=== PATIENT | female | born 1985 | race Caucasian/White ===

== ENCOUNTER 2016-06-21 17:30 | Emergency (ER) | payer SELFPAY ==
[~2016-06-21] VITALS: Ht 160 cm; Wt 74.8 kg
--- OUTSIDE RECORDS SUMMARY | 2016-06-21 17:36 | XMS REPORT ---
Author Author TRIPP OCHOA Organization [employer] Address Unknown Phone Unavailable Care Team Providers Care Rail Grinder Name Role Phone TRIPP OCHOA CP Unavailable Allergies No Known Allergies Problems Problem Type Condition ICD-9 Code Onset Dates Condition Status Assessment Dental examination V72.2 Active Medications No Known Medications Procedures Procedure Coding System Code Date INTRAORL-PERIAPICAL 1 FILM 33183 CPT-4 D0220 Nov 14, 2014 INTRAORL-PERIAPICAL EA ADD FILM CPT-4 D0230 Nov 14, 2014 COMP ORAL EVALUATION - NEW/EST PT CPT-4 D0150 Nov 14, 2014 Periodontal scaling & root CPT-4 D4341 Nov 14, 2014 INTRAORL-PERIAPICAL EA ADD FILM CPT-4 D0230 Nov 14, 2014 INTRAORL-PERIAPICAL EA ADD FILM CPT-4 D0230 Nov 14, 2014 Periodontal scaling & root CPT-4 D4341 Nov 14, 2014 BITEWING - SINGLE FILM CPT-4 D0270 Nov 14, 2014 Results No Known Results Summary Purpose eClinicalWorks Submission
--- NOTE | 2016-06-21 17:57 | ED Upper Extremity ---
General Chief Complaint: Laceration Stated Complaint: L HAND FINGER LAC Source: patient Exam Limitations: no limitations History of Present Illness Time seen by provider: 17:54 Initial Comments To ER with a laceration to the ulnar side middle phalanx ring finger left hand from a butter knife just prior to arrival. Tetanus is not up-to-date. Onset: just prior to arrival Severity: mild Pain/Injury Location: left 4th finger Modifying Factors: Worse With Movement Allergies and Home Medications Allergies Coded Allergies: No Known Drug Allergies (Verified , 03/29/08) Constitutional: see HPI EENTM: see HPI Respiratory: no symptoms reported Cardiovascular: no symptoms reported Genitourinary: no symptoms reported Musculoskeletal: see HPI Skin: see HPI Psychiatric/Neurological: No Symptoms Reported Past Xwupeao-Stnzle-Pmqkug Hx Patient Social History Recent Foreign Travel: No Contact w/Someone Who Travel: No Respiratory Hx Respiratory Disorders: No Cardiovascular Hx Cardiac Disorders: No Neurological Hx Neurological Disorders: No Reproductive System Hx Reproductive Disorders: No Genitourinary Hx Genitourinary Disorders: No Gastrointestinal Hx Gastrointestinal Disorders: No Musculoskeletal Hx Musculoskeletal Disorders: No Endocrine Hx Endocrine Disorders: No HEENT HX ENT Disorders: No Psychosocial Hx Psychiatric Problems: No Blood Transfusions Hx Blood Disorders: No Physical Exam Vital Signs Capillary Refill : General Appearance: WD/WN no apparent distress HEENT: PERRL/EOMI normal ENT inspection Neck: non-tender full range of motion Respiratory: no respiratory distress no accessory muscle use Gastrointestinal: non tender soft Shoulder: normal inspection non-tender Elbow/Forearm: normal inspection, Left Wrist: Yes normal inspection, Yes non-tender Hand: Left, laceration (0.5cm lac to middle phalanx ulnar side left ring finger. Maintains ability to flex at the DIP joint and the PIP joint. ) Neurologic/Psychiatric: alert normal mood/affect oriented x 3 Skin: normal color warm/dry Laceration Repair : Wound Location: Upper Extremities Wound Length (cm): 0.5 Wound's Depth, Shape: sub Q Wound Explored: clean Irrigated w/ Saline (ccs): 30 Anesthesia: 1% Lidocaine Volume Anesthetic (ccs): 2 Suture: Ethlion Suture Size: 5-0 Number of Sutures: 3 Layer Closure?: 1 Number Deep Layer Sutures: 0 Progress Area anesthetized locally with 1 percent lidocaine with epinephrine totaling 1 mL. Wound then scrubbed with chlorhexidine/saline solution then irrigated with same. Wound then closed with 3 simple sutures size 5-0 Ethilon. Progress/Results/Core Measures Results/Orders My Orders Orders-AAMIR CONWAY APRN Lidocaine 2% Injection 20 Ml (Xylocaine (06/21/16 18:00) Dipht,Pertuss(Acell),Tet Adult (Boostrix (06/21/16 18:00) Departure Impression Impression: Primary Impression: Finger laceration Qualified Code: S61.219A - Laceration without foreign body of unspecified finger without damage to nail, initial encounter Disposition: 01 HOME, SELF-CARE Condition: Stable Departure-Patient Inst. Decision time for Depature: 17:57 Referrals: NO,LOCAL PHYSICIAN (PCP/Family) Primary Care Physician Patient Instructions: Laceration Repair With Stitches (DC) Add. Discharge Instructions: 1. Return to the emergency room to have the stitches removed in 7-10 days at your convenience 2. Return to ER for any concerns 3. You may wash her hands allowing water to run over them gently starting tomorrow but do not soak them in water such as a dish sink, hot tub, swimming pool or bathtub until the stitches have been removed All discharge instructions reviewed with patient and/or family. Voiced understanding. Scripts No Active Prescriptions or Reported Meds AAMIR CONWAY APRN Jun 21, 2016 17:57
[2016-06-21] MEDS ORDERED: TETANUS,DIPTH,PERTUSS P/F (BOOSTRIX) 0.5 ML VIAL IM ONE (18:00)
[2016-06-21] MEDS ORDERED: LIDOCAINE 2% 20 ML (XYLOCAINE) VIAL INJ ONE (18:00)
[2016-06-21 18:14] VITALS: BP 130/74
== END 2016-06-21 18:14 | disposition home or self-care (01) ==
LOC: EDUNIT# 17:30 → ER 17:32
DX: S61.215A Laceration without foreign body of left ring finger without damage to nail, initial encounter (principal); Z23 Encounter for immunization; W26.0XXA Contact with knife, initial encounter; Y92.009 Unspecified place in unspecified non-institutional (private) residence as the place of occurrence of the external cause; Y99.8 Other external cause status
CPT/HCPCS: 12001; 90471; 90715

== ENCOUNTER 2016-06-29 13:03 | Emergency (ER) | payer SELFPAY ==
[~2016-06-29] VITALS: Ht 160 cm; Wt 76.2 kg
== END 2016-06-29 13:30 | disposition home or self-care (01) ==
LOC: EDUNIT# 13:03 → ER 13:05
DX: S61.215D Laceration without foreign body of left ring finger without damage to nail, subsequent encounter (principal)

== ENCOUNTER 2016-10-11 14:51 | Emergency (ER) | payer SELFPAY ==
[~2016-10-11] VITALS: Ht 160 cm; Wt 76.2 kg
[2016-10-11] MEDS ORDERED: LEVO40CA PO (15:18)
--- NOTE | 2016-10-11 15:43 | ED Abdominal Pain ---
General Chief Complaint: Abdominal/GI Problems Stated Complaint: NAUSEA/L SIDE PAIN Nursing Triage Note: pt reports l sided abdominal pain that started this am. pt reports vomiting. Sepsis Screen: No Definite Risk Source of Information: Patient Exam Limitations: No Limitations History of Present Illness Time Seen By Provider: 15:20 Initial Comments The patient is a 31-year-old white female who presents with complaints of severe left sided abdominal pain which began this morning. She denies nausea or vomiting. She states she has had a bowel movement today. She denies burning or frequency of urination. There has been no injury. Timing/Duration: 4-6 Hours Severity/Quality: Moderate Location: LUQ, LLQ Radiation: Flank Allergies and Home Medications Allergies Coded Allergies: No Known Drug Allergies (Verified , 03/29/08) Home Medications Levomilnacipran Hydrochloride 40 Mg Cap.sa.24h, 40 MG PO, (Reported) Review of Systems Constitutional: see HPI EENTM: No Symptoms Reported Respiratory: No Symptoms Reported Cardiovascular: No Symptoms Reported Gastrointestinal: See HPI Genitourinary: No Symptoms Reported Musculoskeletal: back pain Skin: no symptoms reported Psychiatric/Neurological: No Symptoms Reported Endocrine: No Symptoms Reported Past Qcqelsd-Bdokww-Ywjksr Hx Patient Social History Alcohol Use: Occasionally Uses Recreational Drug Use: No Smoking Status: Current Everyday Smoker Type Used: Cigarettes 2nd Hand Smoke Exposure: No Recent Foreign Travel: No Contact w/Someone Who Travel: No Recent Infectious Disease Expo: No Recent Hopitalizations: No Immunizations Up To Date Tetanus Booster (TDap): Unknown Surgeries HX Surgeries: No Surgeries: Tubal Ligation Respiratory Hx Respiratory Disorders: No Cardiovascular Hx Cardiac Disorders: No Neurological Hx Neurological Disorders: No Reproductive System Hx Reproductive Disorders: No LAMINATING MACHINE OPERATOR History: Tubal Ligation Genitourinary Hx Genitourinary Disorders: No Gastrointestinal Hx Gastrointestinal Disorders: No Musculoskeletal Hx Musculoskeletal Disorders: No Endocrine Hx Endocrine Disorders: No HEENT HX ENT Disorders: No Psychosocial Hx Psychiatric Problems: No Behavioral Health Disorders: PTSD Blood Transfusions Hx Blood Disorders: No Physical Exam Vital Signs VS - Last 72 Hours, by Label 10/11/16 15:12 Temp 97.6 Pulse 62 Resp 16 B/P (MAP) 121/89 Pulse Ox 98 Capillary Refill : Less Than 3 Seconds General Appearance: moderate distress HEENT: normal ENT inspection Neck: full range of motion Respiratory: chest non-tender, lungs clear, normal breath sounds, no respiratory distress, no accessory muscle use Cardiovascular: normal peripheral pulses, regular rate, rhythm, no edema, no gallop, no JVD, no murmur Gastrointestinal: normal bowel sounds, non tender, soft, no organomegaly, no pulsatile mass Extremities: normal range of motion, non-tender, normal inspection, no pedal edema, no calf tenderness, normal capillary refill, pelvis stable Back: normal inspection Neurologic/Psychiatric: pattern maker II-XII nml as tested, no motor/sensory deficits, alert, normal mood/affect, oriented x 3 Skin: normal color, warm/dry Lymphatic: no adenopathy Laceration Repair : Suture Size: 5-0 Progress/Results/Core Measures Results/Orders Lab Results Laboratory Tests Test 10/11/16 15:35 Range/Units White Blood Count 14.2 H 4.3-11.0 10^3/uL Red Blood Count 4.61 4.35-5.85 10^6/uL Hemoglobin 13.5 11.5-16.0 G/DL Hematocrit 41 35-52 % Mean Corpuscular Volume 88 80-99 FL Mean Corpuscular Hemoglobin 29 25-34 PG Mean Corpuscular Hemoglobin Concent 33 32-36 G/DL Red Cell Distribution Width 13.4 10.0-14.5 % Platelet Count 253 130-400 10^3/uL Mean Platelet Volume 10.5 H 7.4-10.4 FL Neutrophils (%) (Auto) 84 H 42-75 % Lymphocytes (%) (Auto) 8 L 12-44 % Monocytes (%) (Auto) 6 0-12 % Eosinophils (%) (Auto) 2 0-10 % Basophils (%) (Auto) 0 0-10 % Neutrophils # (Auto) 12.0 H 1.8-7.8 X 10^3 Lymphocytes # (Auto) 1.1 1.0-4.0 X 10^3 Monocytes # (Auto) 0.8 0.0-1.0 X 10^3 Eosinophils # (Auto) 0.2 0.0-0.3 10^3/uL Basophils # (Auto) 0.0 0.0-0.1 10^3/uL Neutrophils % (Manual) 74 % Lymphocytes % (Manual) 9 % Monocytes % (Manual) 10 % Eosinophils % (Manual) 2 % Basophils % (Manual) 0 % Band Neutrophils 5 % Blood Morphology Comment NORMAL Urine Color YELLOW Urine Clarity CLEAR Urine pH 5 5-9 Urine Specific [place] 1.025 H 1.016-1.022 Urine Protein 1+ H NEGATIVE Urine Glucose (UA) NEGATIVE NEGATIVE Urine Ketones NEGATIVE NEGATIVE Urine Nitrite NEGATIVE NEGATIVE Urine Bilirubin NEGATIVE NEGATIVE Urine Urobilinogen NORMAL NORMAL MG/DL Urine Leukocyte Esterase 1+ H NEGATIVE Urine RBC (Auto) 2+ H NEGATIVE Urine RBC 5-10 H /HPF Urine WBC 2-5 /HPF Urine Squamous Epithelial Cells 25-50 H /HPF Urine Crystals NONE /LPF Urine Bacteria FEW H /HPF Urine Casts NONE /LPF Urine Mucus NEGATIVE /LPF Urine Culture Indicated NO Sodium Level 141 135-145 MMOL/L Potassium Level 4.4 3.6-5.0 MMOL/L Chloride Level 107 98-107 MMOL/L Carbon Dioxide Level 25 21-32 MMOL/L Anion Gap 9 5-14 MMOL/L Blood Urea Nitrogen 14 7-18 MG/DL Creatinine 0.98 0.60-1.30 MG/DL Estimat Glomerular Filtration Rate > 60 BUN/Creatinine Ratio 14 Glucose Level 123 H 70-105 MG/DL Calcium Level 9.3 8.5-10.1 MG/DL Total Bilirubin 0.5 0.1-1.0 MG/DL Aspartate Amino Transf (AST/SGOT) 19 5-34 U/L Alanine Aminotransferase (ALT/SGPT) 17 0-55 U/L Alkaline Phosphatase 70 40-136 U/L Total Protein 6.9 6.4-8.2 GM/DL Albumin 4.1 3.2-4.5 GM/DL My Orders Orders - GARRY DELA CRUZ MD Cbc With Automated Diff (10/11/16 15:20) Comprehensive Metabolic Panel (10/11/16 15:20) Ua Culture If Indicated (10/11/16 15:20) Manual Differential (10/11/16 15:35) Ct Abdomen/Pelvis W (10/11/16 16:13) Iohexol Injection (Omnipaque 350 Mg/Ml 1 (10/11/16 16:30) Ns (Ivpb) (Sodium Chloride 0.9% Ivpb Bag (10/11/16 16:30) Fentanyl Injection (Sublimaze Injection (10/11/16 17:00) Abdomen/Kub 1view (10/11/16 17:10) Ketorolac Injection (Toradol Injection) (10/11/16 17:30) Ceftriaxone Injection (Rocephin Injectio (10/11/16 17:45) Ns Iv 1000 Ml (Sodium Chloride 0.9%) (10/11/16 18:00) Rx-Hydrocodone/Apap 5-325 Mg (Rx-Vicodin (10/11/16 18:00) Medications Given in ED Current Medications Medications Dose Ordered Sig/Chandrakant Route Start Time Stop Time Status Last Admin Dose Admin Fentanyl Citrate 50 mcg ONCE ONCE IVP 10/11/16 17:00 10/11/16 17:01 DC 10/11/16 17:07 50 MCG Iohexol 100 ml ONCE ONCE IV 10/11/16 16:30 10/11/16 16:31 DC 10/11/16 16:33 100 ML Ketorolac Tromethamine 30 mg ONCE ONCE IVP 10/11/16 17:30 10/11/16 17:31 DC 10/11/16 17:34 30 MG Sodium Chloride 100 ml ONCE ONCE IV 10/11/16 16:30 10/11/16 16:31 DC 10/11/16 16:33 80 ML Vital Signs/I&O Vital Sign - Last 12Hours 10/11/16 15:12 Temp 97.6 Pulse 62 Resp 16 B/P (MAP) 121/89 Pulse Ox 98 Blood Pressure Mean: 100 Departure Communication Progress Notes By my review of the CT scan there is a stone in the left ureter and subsequent radiology report confirms this at [address] Baron at 1720. He suggested Toradol, a dose of Rocephin and he would see her at the office in the morning. Impression Impression: Primary Impression: left ureteral stone Disposition: HOME, SELF-CARE Condition: Stable/Unchanged Departure-Patient Inst. Decision time for Depature: 17:47 Referrals: NO,LOCAL PHYSICIAN (PCP) Primary Care Physician Patient Instructions: No Instuctions Given Add. Discharge Instructions: All discharge instructions reviewed with patient and/or family. Voiced understanding. Plenty of liquids Strain all urine Go to Dr. Baron's office in the morning at 1030 Pain medicine as necessary GARRY DELA CRUZ MD Oct 11, 2016 15:42
[2016-10-11 15:44] LABS: BASOPHILS % (AUTO) 0 % (0-10); BILIRUBIN,URINE NEGATIVE (NEGATIVE); EOSINOPHILS # (AUTO) 0.2 10^3/uL (0.0-0.3); EOSINOPHILS % (AUTO) 2 % (0-10); KETONES,URINE NEGATIVE (NEGATIVE); LEUKOCYTE ESTERASE ,URINE 1+ (NEGATIVE); LYMPHOCYTES # (AUTO) 1.1 X 10^3 (1.0-4.0); LYMPHOCYTES % (AUTO) 8 % (12-44); MEAN CORPUSCULAR HEMOGLOBIN 29 PG (25-34); MEAN CORPUSCULAR HGB CONC 33 G/DL (32-36); MEAN CORPUSCULAR VOLUME 88 FL (80-99); MEAN PLATELET VOLUME 10.5 FL (7.4-10.4); MONOCYTES # (AUTO) 0.8 X 10^3 (0.0-1.0); MONOCYTES % (AUTO) 6 % (0-12); NEUTROPHILS % (AUTO) 84 % (42-75); NITRITE,URINE NEGATIVE (NEGATIVE); PH,URINE 5 (5-9); PLATELET COUNT 253 10^3/uL (130-400); PROTEIN,URINE 1+ (NEGATIVE); RED BLOOD COUNT 4.61 10^6/uL (4.35-5.85); RED CELL DISTRIBUTION WIDTH 13.4 % (10.0-14.5); UROBILINOGEN,URINE NORMAL (NORMAL); WHITE BLOOD COUNT 14.2 10^3/uL (4.3-11.0)
[2016-10-11 15:53] LABS: SQUAMOUS EPITHELIAL CELL,UR 25-50 /HPF
[2016-10-11 16:03] LABS: ALANINE AMINOTRANSFERASE 17 U/L (0-55); ALBUMIN 4.1 GM/DL (3.2-4.5); ANION GAP 9 MMOL/L (5-14); ASPARTATE AMINO TRANSFERASE 19 U/L (5-34); BILIRUBIN,TOTAL 0.5 MG/DL (0.1-1.0); BLOOD UREA NITROGEN 14 MG/DL (7-18); BUN/CREATININE RATIO 14; CALCIUM 9.3 MG/DL (8.5-10.1); CARBON DIOXIDE 25 MMOL/L (21-32); CHLORIDE 107 MMOL/L (98-107); CREATININE SERUM 0.98 MG/DL (0.60-1.30); GFR ESTIMATED > 60; GLUCOSE 123 MG/DL (70-105); POTASSIUM 4.4 MMOL/L (3.6-5.0); SODIUM 141 MMOL/L (135-145); TOTAL PROTEIN 6.9 GM/DL (6.4-8.2)
[2016-10-11 16:07] LABS: BAND NEUTROPHILS 5 %; BASOPHILS % (MANUAL) 0 %; EOSINOPHILS % (MANUAL) 2 %; LYMPHOCYTES % (MANUAL) 9 %; NEUTROPHILS % (MANUAL) 74 %
[2016-10-11] MEDS ORDERED: IOHEXOL 350 MG/ML 100 ML (OMNIPAQUE 350) VIAL IV ONE (16:30)
[2016-10-11] MEDS ORDERED: NS 100 ML (IVPB) BAG IV ONE (16:30)
--- NOTE | 2016-10-11 16:49 | Diagnostic Imaging Report ---
PROCEDURE: CT abdomen and pelvis with contrast. TECHNIQUE: Multiple contiguous axial images were obtained through the abdomen and pelvis after administration of intravenous contrast. INDICATION: Left flank pain. FINDINGS: The lung bases are clear. Liver appears normal. Gallbladder and bile ducts are normal. The pancreas and spleen are normal. Adrenal glands are normal. There is mild hydronephrosis of the left kidney. Left ureter is dilated. There is a calculus in the mid left ureter measuring approximately 5 mm. No other calculi are demonstrated. Bladder is nondistended. Uterus appears normal. There are no pelvic masses. Bowel gas pattern appears normal with diverticulosis demonstrated. No evidence of diverticulitis. Appendix is normal. The aorta and abdominal vessels enhance in a normal fashion. IMPRESSION: 1. Hydronephrosis of the left kidney with 5 mm calculus in the mid left ureter. 2. Bowel gas pattern is normal with diverticulosis and no evidence of diverticulitis. The appendix is normal. Dictated by: Dictated on workstation # [id number]
[2016-10-11] MEDS ORDERED: fentaNYL INJECTION 100 MCG/2 ML AMP IVP ONE (17:00)
[2016-10-11] MEDS ORDERED: KETOROLAC 30 MG/ML VIAL IVP ONE (17:30)
--- NOTE | 2016-10-11 17:37 | Diagnostic Imaging Report ---
EXAMINATION: Abdomen. INDICATION: Flank pain. TECHNIQUE: Two supine views were obtained. FINDINGS: Both collecting systems and the bladder are opacified by the intravenous contrast used for the CT abdomen/pelvis exam performed prior to this study. As noted on the previous CT exam, there is partial obstruction of the left collecting system. The proximal left ureter and left renal pelvis are dilated. The obstructive calculus seen on the CT exam is difficult to visualize. The distal left ureter is of normal caliber. The right collecting system is unremarkable. There is no acute abnormality of the abdomen or pelvis noted, otherwise. IMPRESSION: There is partial obstruction of the left collecting system due to a 5 mm calculus at the level of L3-L4. There is no acute abnormality identified, otherwise. Dictated by: Dictated on workstation # [id number]
[2016-10-11] MEDS ORDERED: cefTRIAXone INJECTION 1,000 MG in NS (IVPB) 50 ML IV ONE (17:45)
[2016-10-11] MEDS ORDERED: NS IV 1000 ML 1,000 ML IV SCH (18:00)
[2016-10-11] MEDS ORDERED: RX-HYDROCODONE/APAP 5/325 MG #4 TAB PK PO PRN (18:00)
[2016-10-11] MEDS ORDERED: RX-OXYCODONE/APAP 5-325 MG #4 TAB PK PO PRN (18:15)
[2016-10-11 18:49] VITALS: BP 120/80
--- OUTSIDE RECORDS SUMMARY | 2016-10-14 13:39 | XMS REPORT ---
Author Author ARUN DHALIWAL [facility] [place] e[employer]Works Address Unknown Phone Unavailable Care Team Providers Care Athletics Teacher Name Role Phone ARUN DHALIWAL CP Unavailable Allergies No Known Allergies Problems No Known Problems Medications No Known Medications Results No Known Results Summary Purpose eClinicalWorks Submission
--- OUTSIDE RECORDS SUMMARY | 2016-10-14 13:39 | XMS REPORT ---
Author Author TRIPP COHOA Organization eClinical[employer] Address Unknown Phone Unavailable Care Team Providers Care Fitter Mechanic Name Role Phone TRIPP OCHOA CP Unavailable Allergies No Known Allergies Problems Problem Type Condition ICD-9 Code Onset Dates Condition Status Assessment Dental examination V72.2 Active Medications No Known Medications Procedures Procedure Coding System Code Date INTRAORL-PERIAPICAL 1 FILM 06915 CPT-4 D0220 Nov 14, 2014 INTRAORL-PERIAPICAL EA [...]
== END 2016-10-11 18:49 | disposition home or self-care (01) ==
LOC: EDUNIT# 14:51 → ER 14:53
DX: N20.1 Calculus of ureter (principal); F43.10 Post-traumatic stress disorder, unspecified; F17.210 Nicotine dependence, cigarettes, uncomplicated; Z98.51 Tubal ligation status
CPT/HCPCS: 36415; 74000; 74177; 80053; 81000; 85007; 85027; 96365; 96375

== ENCOUNTER → 2016-10-19 | Outpatient (CLI) | payer OTHER ==
[~2016-10-19] MED LIST: BUSP10TA95 PO; HYDR-3876 PO; LEVO40CA PO; NITR-65 PO; TAMS0.4C98 PO
--- NOTE | 2016-10-19 15:37 | Diagnostic Imaging Report ---
INDICATION: Left sided abdominal pain. FINDINGS: There is a 5 mm calculus projecting over the left renal pelvis near the ureteropelvic junction. There are surgical lon in the pelvis which may be from a prior tubal ligation. The bowel gas pattern is normal. IMPRESSION: A 5 mm calculus is present near the left ureteropelvic junction. Dictated by: Dictated on workstation # [id number]
== END ==
LOC: RAD 13:48
PROVIDERS: ATTEND Urology
DX: N20.1 Calculus of ureter (principal)
CPT/HCPCS: 74000

== ENCOUNTER → 2016-10-19 | Outpatient (CLI) | payer OTHER | LOC: PREOP 05:29 | PROVIDERS: ATTEND Urology | DX: Z01.818 Encounter for other preprocedural examination; N20.1 Calculus of ureter ==

== ENCOUNTER 2016-10-21 09:00 | Day surgery (SDC) | payer OTHER ==
[~2016-10-21] VITALS: Ht 160 cm; Wt 77.2 kg
[~2016-10-21 09:00] MED LIST changes: -BUSP10TA95 PO; -HYDR-3876 PO; -NITR-65 PO; -TAMS0.4C98 PO
[2016-10-21 09:20] VITALS: BP 116/98
--- NOTE | 2016-10-21 09:31 | Progress Note-Pre Operative ---
Pre-Operative Progress Note H&P Reviewed The H&P was reviewed, patient examined and no changes noted. Date Seen by Provider: Oct 21, 2016 Time Seen by Provider: :30 Date H&P Reviewed: Oct 21, 2016 Time H&P Reviewed: 09:30 Pre-Operative Diagnosis: LT PROXIMAL URETERAL STONE KEVIN DELACRUZ MD Oct 21, 2016 9:31 am
[2016-10-21] MEDS ORDERED: LACTATED RINGERS 1,000 ML IV PRN (09:39)
[2016-10-21] MEDS ORDERED: FAMOTIDINE 20MG/2ML IV (PEPCID) IV ONE (09:45)
--- NOTE | 2016-10-21 09:47 | Diagnostic Imaging Report ---
Supine view of the abdomen. INDICATION: Left ureteric stone. FINDINGS: There is a proximal left ureteric stone measuring 5 mm seen at L4-L5 level. There are no other significant calcifications along the urinary tract seen. No significant change from 10/19/2016. Moderate amount of fecal material is noted, and bilateral surgical clips in the pelvis are noted. IMPRESSION: A 5-mm proximal left ureteric stone at L4 level seen. Dictated by: Dictated on workstation # [id number]
[2016-10-21] MEDS ORDERED: BUSP10TA95 PO (10:07)
[2016-10-21] MEDS ORDERED: cefTRIAXone 1 GM (ROCEPHIN) VIAL ONE (10:23)
[2016-10-21] MEDS ORDERED: NS (IVPB) 50 ML ONE (10:24)
[2016-10-21] MEDS ORDERED: cefTRIAXone 1 GM/NS 50 ML IVPB IV ONE ×2 (10:45)
[2016-10-21] MEDS ORDERED: CATHETER FLUSH 10 ML SYR IV PRN (10:45)
[2016-10-21] MEDS ORDERED: LACTATED RINGERS 1,000 ML IV ONE (10:51)
[2016-10-21] MEDS ORDERED: FUROSEMIDE 40 MG/4 ML INJ (LASIX) ONE (10:51)
[2016-10-21] MEDS ORDERED: MIDAZOLAM 10 MG/2 ML (VERSED) VIAL ONE (10:51)
[2016-10-21] MEDS ORDERED: proPOfol 200 MG/20 ML (DIPRIVAN) VIAL IV ONE (10:51)
[2016-10-21] MEDS ORDERED: fentaNYL INJECTION 100 MCG/2 ML AMP ONE (10:51)
[2016-10-21] MEDS ORDERED: ONDANSETRON 4 MG/2 ML (SDV) Z0FRAN ONE (10:51)
[2016-10-21] MEDS ORDERED: SEVOFLURANE (ULTANE) 15 ML INHAL SOLN ONE (10:51)
--- NOTE | 2016-10-21 10:51 | Progress Note-Post Operative ---
Post-Operative Progess Note Surgeon (s)/Workers Compensation Claims Examiner (s) Surgeon KEVIN DELACRUZ MD Workers Compensation Claims Examiner: N/A Pre-Operative Diagnosis LT PROXIMAL URETERAL STONE Post-Operative Diagnosis SAME Procedure & Operative Findings Date of Procedure 10/21/16 Procedure Performed/Findings LT ESWL FOR LT PROXIMAL URETERAL STONE Anesthesia Type GENERAL Estimated Blood Loss Estimated blood loss (mL): N/A Specimens/Packing Specimens Removed N/A Packing: N/A KEVIN DELACRUZ MD Oct 21, 2016 10:51 am
[2016-10-21] MEDS ORDERED: MIDAZOLAM 2 MG/2 ML (VERSED) VIAL ONE (10:52)
--- NOTE | 2016-10-21 10:52 | Discharge Inst-Urology ---
Discharge Inst-Urology Discharge Medications New, Converted, or Re-newed RX: RX on Chart Patient Instructions/Follow Up Plan Please make appointment to been seen in office in 2 weeks. KUB prior to it KUB on way home Post ESWL instructions Increase oral fluids for 48 hours and then as needed. Diet and Activity as tolerated. If questions or concerns contact your physician Or seek help at emergency department. KEVIN DELACRUZ MD Oct 21, 2016 10:52 am
[2016-10-21] MEDS ORDERED: morphine INJ 10 MG/ML 1ML (SYR OR VIAL) ONE (11:35)
[2016-10-21] MEDS ORDERED: morphine INJ 10 MG/ML 1ML (SYR OR VIAL) IVP PRN (11:45)
[2016-10-21] MEDS ORDERED: HYDR-3876 PO (12:19)
[2016-10-21] MEDS ORDERED: NITR-65 PO (12:19)
[2016-10-21] MEDS ORDERED: TAMS0.4C98 PO (12:19)
[2016-10-21 12:20] VITALS: BP 118/87
[2016-10-21] MEDS ORDERED: HYDROcodone/APAP 10 MG/325 MG (LORTAB) TAB PO ONE (12:33)
[2016-10-21] MEDS ORDERED: HYDROcodone/APAP 10 MG/325 MG (LORTAB) TAB PO PRN (12:45)
[2016-10-21 12:50] VITALS: BP 116/87
--- NOTE | 2016-10-21 13:43 | Diagnostic Imaging Report ---
Supine view of the abdomen. INDICATION: Left ureter stone after lithotripsy. FINDINGS: The previously seen stone in the left ureter at L4 level is not demonstrated at this time. There are calcifications or focal densities seen more proximally at lower L3 level along the expected course of the left ureter which may represent small fragments. There is no distal ureteric fragment or contralateral ureteric stones identified. IMPRESSION: Densities up to 4 mm seen at lower L3 level could relate to post lithotripsy stone fragments in the proximal left ureter. Dictated by: Dictated on workstation # [id number]
--- NOTE | 2016-10-21 17:09 | OPERATIVE REPORT ---
PROCEDURE PHYSICIAN: KEVIN DELACRUZ DATE OF PROCEDURE: 10/21/2016 PREOPERATIVE DIAGNOSIS: Left proximal ureteral stone. POSTOPERATIVE DIAGNOSIS: Left proximal ureteral stone. OPERATION: Left ESWL. SURGEON: Loraine. ANESTHESIA: General. COMPLICATIONS: None. PROCEDURE: Under satisfactory general anesthesia, the patient supine position on the ESWL table, the left proximal ureteral stone was localized. Shocks were delivered KV of 6. Total of 2000 shocks completely fragmented the stone. The patient received 40 mg of Lasix and 30 mg of Toradol IV at the end of the procedure. She tolerated the procedure and anesthesia well and was sent to recovery room in stable condition. Job ID: [id number] Dictated Date: 10/21/2016 11:21:12 Director Of Human Resources Date: 10/21/2016 16:58:36 / ashlyn
== END 2016-10-21 13:22 | disposition home or self-care (01) ==
LOC: SDC 09:00
PROVIDERS: ATTEND Urology
DX: N20.1 Calculus of ureter (principal); F41.9 Anxiety disorder, unspecified; K21.9 Gastro-esophageal reflux disease without esophagitis; F17.210 Nicotine dependence, cigarettes, uncomplicated
CPT/HCPCS: 74000; 80306; 84703; 87081